=== PATIENT | female | born 1985 | race African-American/Black ===

== ENCOUNTER 2016-11-03 11:17 | Emergency (ER) | payer OTHER ==
[~2016-11-03] VITALS: Ht 180.3 cm; Wt 147.4 kg
[2016-11-03] MEDS ORDERED: NKM (11:31)
[2016-11-03 12:10] VITALS: BP 162/104
[2016-11-03] MEDS: Ketorolac 30mg Inj IV ONE ×2 (13:24→13:41)
[2016-11-03 14:17] LABS: APPEARANCE,URINE CLEAR; KETONES,URINE 1+ (NEGATIVE); LEUKOCYTE ESTERASE ,URINE 1+ (NEGATIVE); NITRITE,URINE NEGATIVE (NEGATIVE); PH,URINE 7 (4.5-8.0); PROTEIN,URINE NEGATIVE (NEGATIVE); UROBILINOGEN,URINE 4 MG/DL (0.0-1.0)
[2016-11-03 14:35] LABS: BACTERIA,URINE FEW /HPF; SQUAMOUS EPITHELIAL CELL,UR FEW /LPF (NONE/OCC)
[2016-11-03 14:38] VITALS: BP 164/97
[2016-11-03] MEDS ORDERED: Morphine Sulfate 4mg/ml Inj IVP ONE (15:00)
--- NOTE | 2016-11-03 16:27 | Emergency Room Report ---
History of Present Illness General Chief Complaint: Headache Source: Patient Present Illness HPI Patient with 3 days of BRITO. L denominational. Has had headaches like this in past with prior w/u with CT. She feels related to elevated BP. Also increased stress with family issues. No SI or HI. Vomiting, but not only with nausea. No fevers, change vision, vomit blood, melena, dysuria, rashes. Pain is 10/10 constant, in denominational area, not radiating, sharp and pounding. Dehydrated A lot of stress. Had to be on BP meds during stressful period 3 years ago ( of family member ). Not know what BP med was. Not . 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 Last Menstrual Period: now Now: No Reviewed Nursing Documentation: PMH: Agreed, PSxH: Agreed Nursing Documentation-PMH Past Medical History: No History, Except For Hx Hypertension: Yes Review of Systems All Other Systems: negative except mentioned in HPI Physical Exam Vital Signs Date Time Temp Pulse Resp B/P Pulse Ox O2 Delivery O2 Flow Rate FiO2 11/03/16 11:26 98.1 75 18 158/132 98 Room Air Sp02 EP Interpretation: reviewed, normal General Appearance: well appearing, no apparent distress, GCS 15, obese Head: normocephalic, atraumatic Eyes: bilateral eye EOMI, bilateral eye PERRL, bilateral eye normal inspection ENT: moist mucus membranes Neck: supple Respiratory: lungs clear, normal breath sounds Cardiovascular #1: regular rate, rhythm Cardiovascular #2: 2+ radial (R) Gastrointestinal: normal inspection, normal bowel sounds, non tender, no mass, non-distended Musculoskeletal: back normal, gait/station normal, normal range of motion Neurologic: alert, oriented x3, 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 She has had these headaches in the past with negative work up. DDx: stress, tension, migraine, hypertension amongst others. Patient will be evaluated with UA (look for proteinuria and ability to concentrate). CT not indicated. Will treat pain and re-asses HTN as has history of labile HTN. Labs unremarkable. Patient not improved after toradol. Morphine given. States pain still present and initially states "still the same " but then agrees some improvement. BP better with treatment of pain. Percocet given. Discussed stress with patient. Also discussed exercise and salt restriction with patient. No medical emergency. Patient stable for outpatient observation and treatment. Laboratory Tests Test 11/03/16 14:00 Urine Color Yellow Urine Appearance Clear Urine pH 7 (4.5-8.0) Urine Specific Brooks 1.015 (1.005-1.035) Urine Protein Negative (NEGATIVE) Urine Glucose (UA) Negative (NEGATIVE) Urine Ketones 1+ (NEGATIVE) H Urine Occult Blood 4+ (NEGATIVE) H Urine Nitrite Negative (NEGATIVE) Urine Bilirubin Negative (NEGATIVE) Urine Urobilinogen 4 MG/DL (0.0-1.0) H Urine Leukocyte Esterase 1+ (NEGATIVE) H Urine RBC 2-4 /HPF (0 - 2) H Urine WBC 2-4 /HPF (0 - 2) Urine Squamous Epithelial Cells Few /LPF (NONE/OCC) Urine Bacteria Few /HPF (NONE) Urine HCG, Qualitative Negative Urine Opiates Screen Negative (NEGATIVE) Urine Barbiturates Screen Negative (NEGATIVE) Phencyclidine (PCP) Screen Negative (NEGATIVE) Urine Amphetamines Screen Negative (NEGATIVE) Urine Benzodiazepines Screen Negative (NEGATIVE) Urine Cocaine Screen Negative (NEGATIVE) Urine Marijuana (THC) Screen Positive (NEGATIVE) H Last Vital Signs Date Time Temp Pulse Resp B/P Pulse Ox O2 Delivery O2 Flow Rate FiO2 11/03/16 16:58 68 17 141/86 98 Room Air 11/03/16 14:38 98.1 Status: improved Disposition: HOME, SELF-CARE Condition: Improved Scripts Ibuprofen* (MOTRIN*) 600 Mg Tablet 600 MG ORAL Q6H Y for For Pain, #20 TAB Prov: Niraj Oreilly M.D. 11/03/16 Hydrocodone Bit/Acetaminophen 5-325* (NORCO 5-325*) 1 Each Tablet 1 TAB ORAL Q6H Y for For Pain, #10 TAB 0 Refills Prov: Niraj Oreilly M.D. 11/03/16 Ondansetron Odt* (ZOFRAN ODT*) 4 Mg Tab.rapdis 4 MG ORAL Q6H Y for Nausea & Vomiting, #6 TAB 0 Refills Prov: Niraj Oreilly M.D. 11/03/16 Referrals: NON PHYSICIAN (PCP) Niraj Oreilly M.D. November 03, 2016 16:27
[2016-11-03] MEDS ORDERED: NORCO 5-325 TA1 EACH ORAL (16:30)
[2016-11-03] MEDS ORDERED: ZOFRAN ODT4 MG ORAL (16:30)
[2016-11-03] MEDS ORDERED: Oxycodone/Acetaminophen 5-325 ORAL ONE (16:30)
[2016-11-03] MEDS ORDERED: IBUPROFEN600 MG ORAL (16:30)
[2016-11-03 16:58] VITALS: BP 141/86
== END 2016-11-03 16:58 | disposition home or self-care (01) ==
LOC: EMR 11:54
DX: R51 Headache (principal); I10 Essential (primary) hypertension; F17.200 Nicotine dependence, unspecified, uncomplicated
CPT/HCPCS: 80300; 81003; 81025; 96360; 96361; 96374; 96375; 99284; J1885; J2270